=== PATIENT | male | born 1980 | race Caucasian/White ===

== ENCOUNTER 2017-05-23 22:56 | Emergency (ER) | payer OTHER ==
[~2017-05-23 22:56] MED LIST: BACT800T5 PO; SUBUTEX PO
[2017-05-23 23:11] VITALS: BP 136/94; PULSE 75; RESP 18; TEMP 97.8; O2SAT 98
[2017-05-24 00:11] LABS: AUTOMATED NEUTROPHIL # 3.1 TH/MM3 (1.8-7.7); BASOPHIL % 0.7 % (0.0-2.0); EOSINOPHIL # 0.2 TH/MM3 (0-0.4); EOSINOPHIL % 2.9 % (0.0-4.0); HEMATOCRIT 42.2 % (39.0-51.0); HEMO FLAGS DIFF FINAL; LYMPH % 34.8 % (9.0-44.0); LYMPHOCYTE # 1.9 TH/MM3 (1.0-4.8); MEAN CELL VOLUME 89.5 FL (80.0-100.0); MEAN CORPUSCULAR HEMOGLOBIN 31.3 PG (27.0-34.0); MONO % 5.9 % (0.0-8.0); NEUT % 55.7 % (16.0-70.0); PLATELET COUNT 190 TH/MM3 (150-450); RED BLOOD COUNT 4.72 MIL/MM3 (4.50-5.90); RED CELL DISTRIBUTION WIDTH 13.5 % (11.6-17.2); WHITE BLOOD COUNT 5.6 TH/MM3 (4.0-11.0)
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
[2017-05-24 00:32] LABS: ANION GAP 10 MEQ/L (5-15); AST (GOT) 30 U/L (15-37); BICARBONATE 21.1 MEQ/L (21.0-32.0); BLOOD UREA NITROGEN 17 MG/DL (7-18); CHLORIDE 108 MEQ/L (98-107); GLOMERULAR FILTRATION RATE 70 ML/MIN (>89); POTASSIUM 3.7 MEQ/L (3.5-5.1); SODIUM (NA) 139 MEQ/L (136-145)
[2017-05-24 00:33] LABS: ALT (GPT) 42 U/L (12-78)
[2017-05-24 00:35] LABS: ALKALINE PHOSPHATASE 73 U/L (45-117); TOTAL BILIRUBIN ADULT 1.1 MG/DL (0.2-1.0)
[2017-05-24 00:37] LABS: ALCOHOL 122 MG/DL (0-5)
[2017-05-24 00:39] LABS: ACETAMINOPHEN LESS THAN 2.0 MCG/ML (10.0-30.0)
[2017-05-24 01:10] VITALS: BP 123/80; PULSE 75; RESP 18
[2017-05-24 06:22] VITALS: BP 100/58; PULSE 61; RESP 18; TEMP 98.1; O2SAT 99
[2017-05-24 10:30] VITALS: BP 122/72; PULSE 64; RESP 18
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
--- NOTE | 2017-05-24 13:18 | PD ---
Physical Exam Date Seen by Provider: May 24, 2017 Time Seen by Provider: 13:17 Narrative 36-year-old male previously medically cleared for psychiatric evaluation has been seen by psychiatric staff and felt appropriate for discharge with outpatient follow-up. Patient continues to be medically stable for discharge. Follow-up as per psychiatric note. Data Data Last Documented VS Vital Signs Date Time Temp Pulse Resp B/P (MAP) Pulse Ox O2 Delivery O2 Flow Rate FiO2 05/24/17 10:30 64 18 122/72 (89) Room Air 05/24/17 06:22 98.1 99 Orders Orders Complete Blood Count With Diff (05/23/17 23:20) Comprehensive Metabolic Panel (05/23/17 23:20) Psych Screen (05/23/17 23:20) Drug Screen, Random Urine (05/23/17 23:20) Alcohol (Ethanol) (05/23/17 23:20) Salicylates (Aspirin) (05/23/17 23:20) Tylenol (Acetaminophen) (05/23/17 23:20) Diet Regular Basic (05/24/17 Breakfast) Diet Regular Basic (05/24/17 Lunch) Labs Laboratory Tests Test 05/23/17 23:25 05/24/17 01:00 White Blood Count 5.6 TH/MM3 Red Blood Count 4.72 MIL/MM3 Hemoglobin 14.8 GM/DL Hematocrit 42.2 % Mean Corpuscular Volume 89.5 FL Mean Corpuscular Hemoglobin 31.3 PG Mean Corpuscular Hemoglobin Concent 35.0 % Red Cell Distribution Width 13.5 % Platelet Count 190 TH/MM3 Mean Platelet Volume 8.2 FL Neutrophils (%) (Auto) 55.7 % Lymphocytes (%) (Auto) 34.8 % Monocytes (%) (Auto) 5.9 % Eosinophils (%) (Auto) 2.9 % Basophils (%) (Auto) 0.7 % Neutrophils # (Auto) 3.1 TH/MM3 Lymphocytes # (Auto) 1.9 TH/MM3 Monocytes # (Auto) 0.3 TH/MM3 Eosinophils # (Auto) 0.2 TH/MM3 Basophils # (Auto) 0.0 TH/MM3 CBC Comment DIFF FINAL Differential Comment Blood Urea Nitrogen 17 MG/DL Creatinine 1.16 MG/DL Random Glucose 77 MG/DL Total Protein 7.7 GM/DL Albumin 4.2 GM/DL Calcium Level 8.4 MG/DL Alkaline Phosphatase 73 U/L Aspartate Amino Transf (AST/SGOT) 30 U/L Alanine Aminotransferase (ALT/SGPT) 42 U/L Total Bilirubin 1.1 MG/DL Sodium Level 139 MEQ/L Potassium Level 3.7 MEQ/L Chloride Level 108 MEQ/L Carbon Dioxide Level 21.1 MEQ/L Anion Gap 10 MEQ/L Estimat Glomerular Filtration Rate 70 ML/MIN Salicylates Level LESS THAN 1.7 MG/DL Acetaminophen Level LESS THAN 2.0 MCG/ML Ethyl Alcohol Level 122 MG/DL Urine Opiates Screen NEG Urine Barbiturates Screen NEG Urine Amphetamines Screen POS Urine Benzodiazepines Screen NEG Urine Cocaine Screen NEG Urine Cannabinoids Screen NEG MDM Medical Record Reviewed: Yes Supervised Visit with JOSE: Yes Narrative Course 36-year-old male previously medically cleared for psychiatric evaluation has been seen by psychiatric staff and felt appropriate for discharge with outpatient follow-up. Patient continues to be medically stable for discharge. Follow-up as per psychiatric note. Diagnosis Primary Impression: alcohol abuse with intoxication Additional Impression: Amphetamine abuse Disposition: DISCHARGE HOME Condition: Stable Roberto Hathaway May 24, 2017 13:18
== END 2017-05-24 13:58 | disposition home or self-care (01) ==
LOC: NEPD 22:56 → NEPJ 05-24 13:58
DX: F10.129 Alcohol abuse with intoxication, unspecified (principal); F15.10 Other stimulant abuse, uncomplicated; Y90.6 Blood alcohol level of 120-199 mg/100 ml; Z72.0 Tobacco use; Z79.899 Other long term (current) drug therapy
CPT/HCPCS: 80053; 80307; 85025; 99284